=== PATIENT | female | born 1950 | race Caucasian/White ===

== ENCOUNTER 2018-08-26 20:42 | Emergency (ER) | payer OTHER ==
[~2018-08-26] VITALS: Ht 160 cm; Wt 89.4 kg
[2018-08-26 23:55] VITALS: BP 152/80
[2018-08-27] MEDS ORDERED: ACETAMINOPHEN/CODEINE#3 (300/30mg) TAB PO ONE (00:45)
== END 2018-08-27 01:25 | disposition home or self-care (01) ==
LOC: ER 20:43
DX: R51 Headache (principal); M79.602 Pain in left arm; J45.909 Unspecified asthma, uncomplicated; E11.9 Type 2 diabetes mellitus without complications; E78.5 Hyperlipidemia, unspecified; I10 Essential (primary) hypertension
CPT/HCPCS: 29125; 70450; 73030; 73080; 73110